=== PATIENT | male | born 1955 | race Caucasian/White ===

== ENCOUNTER 2018-11-04 20:21 | Emergency (ER) | payer SELFPAY ==
[~2018-11-04] VITALS: Ht 167.6 cm; Wt 80.3 kg
[2018-11-04 21:39] VITALS: BP 145/79
[2018-11-04 23:14] LABS: BASOPHILS % 0.3 % (0.0-2.0); EOSINOPHILS % 1.6 % (0.0-5.0); HEMATOCRIT. 41.8 % (42.0-52.0); HEMOGLOBIN. 14.2 g/dL (14.0-18.0); LYMPHOCYTES % 29.4 % (20.0-50.0); MEAN CORPUSCULAR HEMOGLOBIN 31.1 pg (28.0-32.0); MEAN CORPUSCULAR VOLUME 91.3 fL (80.0-94.0); MEAN PLATELET VOLUME 7.9 fl (7.4-10.4); MONOCYTES % 9.2 % (2.0-8.0); NEUTROPHILS % 59.5 % (40.0-76.0); PLATELET 212 x1000/uL (130-400); RED BLOOD CELL COUNT 4.58 mill/uL (4.7-6.1); RED CELL DISTRIBUTION WIDTH 13.1 % (11.6-14.6)
[2018-11-04 23:17] LABS: CHLORIDE 109 mEq/L (98-107)
== END 2018-11-05 00:22 | disposition left against medical advice (07) ==
LOC: ER 20:21
DX: M79.604 Pain in right leg (principal); F17.200 Nicotine dependence, unspecified, uncomplicated; F14.10 Cocaine abuse, uncomplicated
CPT/HCPCS: 36415; 80048; 99283

== ENCOUNTER 2019-04-14 18:17 | Inpatient (IN) | payer SELFPAY ==
[~2019-04-14] VITALS: Ht 172.7 cm; Wt 84.1 kg
[2019-04-14 04:00] VITALS: BP 154/84
[2019-04-14] MEDS ORDERED: ONDANSETRON HCL 4MG/2ML INJ IV STA (20:04)
[2019-04-14] MEDS ORDERED: SODIUM CHLORIDE 0.9% 1,000 ML IV ONE (20:04)
[2019-04-14] MEDS ORDERED: MORPHINE SULFATE 4 MG/ML CPJ (NOT FOR IM USE) IV STA (20:04)
[2019-04-14] MEDS ORDERED: VANCOMYCIN 1 G PREMIX 200 ML IV ONE (20:15)
[2019-04-14] MEDS ORDERED: PIPERACILLIN/TAZ 3.375G PREMIX 50 ML IV ONE (20:15)
[2019-04-14] MEDS ORDERED: SODIUM CHLORIDE 0.9% 1000ML BAG (SEPSIS BOLUS) IV ONE (20:15)
[2019-04-14] MEDS ORDERED: DIPHENHYDRAMINE 50MG/ML VIAL IV ONE (20:15)
[2019-04-14 20:46] LABS: CLARITY URINE CLEAR (CLEAR); COLOR URINE YELLOW (YELLOW); KETONES URINE NEGATIVE (NEGATIVE); LEUKOCYTE ESTERASE URINE NEGATIVE (NEGATIVE); NITRITE URINE NEGATIVE (NEGATIVE); OCCULT BLOOD URINE NEGATIVE (NEGATIVE); PH URINE 5.5 (4.5-8.0); PROTEIN URINE NEGATIVE (NEGATIVE); SPECIFIC GRAVITY URINE 1.033 (1.005-1.030)
[2019-04-14 21:55] LABS: BASOPHILS % 0.7 % (0.0-2.0); EOSINOPHILS % 6.8 % (0.0-5.0); HEMATOCRIT. 39.8 % (42.0-52.0); HEMOGLOBIN. 13.7 g/dL (14.0-18.0); LYMPHOCYTES % 29.8 % (20.0-50.0); MEAN CORPUSCULAR HEMOGLOBIN 31.5 pg (28.0-32.0); MEAN CORPUSCULAR VOLUME 91.6 fL (80.0-94.0); MEAN PLATELET VOLUME 8.4 fl (7.4-10.4); MONOCYTES % 8.4 % (2.0-8.0); NEUTROPHILS % 54.3 % (40.0-76.0); PLATELET 165 x1000/uL (130-400); RED BLOOD CELL COUNT 4.35 mill/uL (4.7-6.1); RED CELL DISTRIBUTION WIDTH 12.8 % (11.6-14.6)
[2019-04-14 22:01] LABS: PROTHROMBIN TIME 10.3 sec (9.6-11.0)
[2019-04-14 22:15] LABS: CHLORIDE 109 mEq/L (98-107)
[2019-04-15] MEDS ORDERED: ACETAMINOPHEN 650MG SUPP PR PRN (03:15)
[2019-04-15] MEDS ORDERED: ONDANSETRON HCL 4MG/2ML INJ IV PRN (03:15)
[2019-04-15] MEDS ORDERED: PIPERACILLIN/TAZ 3.375G PREMIX 50 ML IV SCH (03:15)
[2019-04-15] MEDS ORDERED: VANCOMYCIN 1 G PREMIX 200 ML IV SCH (03:15)
[2019-04-15] MEDS ORDERED: MAGNESIUM/ALUMINUM HYDROXIDE/SIMETHICONE 30ML UDC PO PRN (03:15)
[2019-04-15] MEDS ORDERED: ACETAMINOPHEN 325MG TABLET PO PRN (03:15)
[2019-04-15] MEDS ORDERED: CLONIDINE 0.1MG TABLET PO PRN (03:15)
[2019-04-15] MEDS ORDERED: PIPERACILLIN/TAZOBACTAM 3.375 G in DEXT 5% WATER 100 ML IV SCH (06:00)
[2019-04-15] MEDS ORDERED: VANCOMYCIN 750 MG PREMIX 150 ML IV SCH ×2 (08:00→10:30)
[2019-04-15] MEDS: ENOXAPARIN 40MG/0.4ML SYR SUBCUT SCH (08:47)
[2019-04-15] MEDS: PIPERACILLIN/TAZOBACTAM 3.375 G in DEXT 5% WATER 100 ML IV SCH ×2 (12:02→17:08)
[2019-04-15 20:00] VITALS: BP 108/70
[2019-04-15] MEDS: VANCOMYCIN 1500MG in DEXTROSE 5% WATER 250ML IV SCH (22:00)
[2019-04-15] MEDS: DIPHENHYDRAMINE 50MG/ML VIAL IV PRN (22:09)
[2019-04-16] VITALS: BP 110/70
[2019-04-16] MEDS: PIPERACILLIN/TAZOBACTAM 3.375 G in DEXT 5% WATER 100 ML IV SCH ×4 (00:26→18:32)
[2019-04-16 04:00] VITALS: BP 123/68
[2019-04-16] MEDS: SODIUM CHLORIDE 0.9% INJ 3ML FLUSH IVF SCH ×2 (05:36→14:00)
[2019-04-16 06:31] LABS: BASOPHILS % 0.5 % (0.0-2.0); CHLORIDE 111 mEq/L (98-107); EOSINOPHILS % 6.1 % (0.0-5.0); HEMATOCRIT. 42.8 % (42.0-52.0); HEMOGLOBIN. 14.9 g/dL (14.0-18.0); LYMPHOCYTES % 24.6 % (20.0-50.0); MEAN CORPUSCULAR HEMOGLOBIN 31.6 pg (28.0-32.0); MEAN CORPUSCULAR VOLUME 90.8 fL (80.0-94.0); MEAN PLATELET VOLUME 8.5 fl (7.4-10.4); MONOCYTES % 7.2 % (2.0-8.0); NEUTROPHILS % 61.6 % (40.0-76.0); PLATELET 181 x1000/uL (130-400); RED BLOOD CELL COUNT 4.71 mill/uL (4.7-6.1)
[2019-04-16 08:00] VITALS: BP 129/79
[2019-04-16] MEDS: VANCOMYCIN 1500MG in DEXTROSE 5% WATER 250ML IV SCH (08:35)
[2019-04-16] MEDS: ENOXAPARIN 40MG/0.4ML SYR SUBCUT SCH (08:35)
[2019-04-16] MEDS: DIPHENHYDRAMINE 50MG/ML VIAL IV PRN (11:50)
[2019-04-16 12:00] VITALS: BP 118/64
[2019-04-16 16:00] VITALS: BP 117/74
[2019-04-16] MEDS ORDERED: VANCOMYCIN 1250MG in DEXTROSE 5% WATER 250ML IV SCH (16:00)
[2019-04-16 20:00] VITALS: BP 120/66
== END 2019-04-16 21:38 | disposition home or self-care (01) | DRG 383 ==
LOC: ER 18:17 → EDBEDREQ 23:57 → 6EST 04-15 00:44 → EDBEDREQ 04-15 00:47 → EDBEDREQDT 04-15 00:47 → EDBEDREQTM 04-15 00:47 → ENRESERV 04-15 01:48
PROVIDERS: ADMIT Internal Medicine; ATTEND Internal Medicine
DX: L03.115 Cellulitis of right lower limb (principal); L97.919 Non-pressure chronic ulcer of unspecified part of right lower leg with unspecified severity; I73.9 Peripheral vascular disease, unspecified; L29.9 Pruritus, unspecified
CPT/HCPCS: 36415; 71045; 73590; 80048; 80202; 81003; 83605; 84145; 84484; 87070; 87077; 87186; 93005; 93970; 99285; J1200; J1650; J2270; J2405; J2543; J3370; J7030; J7060

== ENCOUNTER 2019-04-23 08:23 | Emergency (ER) | payer MEDICAID ==
[~2019-04-23] VITALS: Ht 167.6 cm; Wt 81.0 kg
[2019-04-23 08:32] VITALS: BP 154/67
== END 2019-04-23 08:53 | disposition home or self-care (01) ==
LOC: ER 08:23
DX: L97.818 Non-pressure chronic ulcer of other part of right lower leg with other specified severity (principal); L29.9 Pruritus, unspecified; L30.9 Dermatitis, unspecified; F17.210 Nicotine dependence, cigarettes, uncomplicated
CPT/HCPCS: 99283

== ENCOUNTER 2021-11-09 21:50 | Emergency (ER) | payer MEDICAID ==
[~2021-11-09] VITALS: Ht 175.3 cm; Wt 79.7 kg
[2021-11-09 22:26] VITALS: BP 138/72
[2021-11-09] MEDS ORDERED: ACETAMINOPHEN 325MG TABLET PO ONE (23:00)
[2021-11-10] MEDS ORDERED: ACET-2708 MT (00:54)
== END 2021-11-10 01:00 | disposition home or self-care (01) ==
LOC: ER 21:50
DX: M79.89 Other specified soft tissue disorders (principal)
CPT/HCPCS: 93971; 99284

== ENCOUNTER 2021-11-23 16:19 | Emergency (ER) | payer MEDICAID ==
[~2021-11-23] VITALS: Ht 175.3 cm; Wt 69.0 kg
[~2021-11-23 16:19] MED LIST: ACET-2708 MT
[2021-11-23 20:01] LABS: BASOPHILS % 0.7 % (0.0-2.0); EOSINOPHILS % 2.3 % (0.0-5.0); HEMATOCRIT. 42.6 % (42.0-52.0); HEMOGLOBIN. 14.6 g/dL (14.0-18.0); LYMPHOCYTES % 30.3 % (20.0-50.0); MEAN CORPUSCULAR HEMOGLOBIN 31.2 pg (28.0-32.0); MEAN CORPUSCULAR VOLUME 90.9 fL (80.0-94.0); MEAN PLATELET VOLUME 8.1 fl (7.4-10.4); MONOCYTES % 6.5 % (2.0-8.0); NEUTROPHILS % 60.2 % (40.0-76.0); PLATELET 178 x1000/uL (130-400); RED BLOOD CELL COUNT 4.68 mill/uL (4.7-6.1); RED CELL DISTRIBUTION WIDTH 12.8 % (11.6-14.6)
[2021-11-23 20:08] LABS: CHLORIDE 110 mEq/L (98-107)
[2021-11-23] MEDS ORDERED: MUPI15CR11 TP (21:14)
[2021-11-23] MEDS ORDERED: DOXY100C5 MT (21:14)
[2021-11-23 21:26] VITALS: BP 135/80
== END 2021-11-23 21:26 | disposition home or self-care (01) ==
LOC: ER 16:19
DX: L03.115 Cellulitis of right lower limb (principal); I83.11 Varicose veins of right lower extremity with inflammation
CPT/HCPCS: 36415; 73590; 73630; 80053; 83605; 85025; 93971; 99285

== ENCOUNTER 2022-08-24 19:21 | Emergency (ER) | payer MEDICAID ==
[~2022-08-24] VITALS: Ht 162.6 cm; Wt 74.6 kg
[~2022-08-24 19:21] MED LIST changes: +DOXY100C5 MT; +MUPI15CR11 TP
[2022-08-24 19:31] VITALS: BP 134/66
== END 2022-08-24 22:11 | disposition left against medical advice (07) ==
LOC: ER 19:21
DX: Z53.21 Procedure and treatment not carried out due to patient leaving prior to being seen by health care provider (principal)

== ENCOUNTER 2024-11-27 13:03 | Emergency (ER) | payer MEDICAID ==
[~2024-11-27] VITALS: Ht 167.6 cm; Wt 45.0 kg
[2024-11-27 13:08] VITALS: O2SAT 99
[2024-11-27 14:01] LABS: BASOPHILS % 0.3 % (0.0-2.0); EOSINOPHILS % 1.2 % (0.0-5.0); HEMATOCRIT. 39.3 % (42.0-52.0); HEMOGLOBIN. 13.1 g/dL (14.0-18.0); MEAN CORPUSCULAR HEMOGLOBIN 30.2 pg (28.0-32.0); MEAN CORPUSCULAR HGB CONC 33.4 g/dL (31.0-37.0); MEAN CORPUSCULAR VOLUME 90.2 fL (80.0-94.0); MEAN PLATELET VOLUME 8.1 fl (7.4-10.4); MONOCYTES % 6.3 % (2.0-8.0); NEUTROPHILS % 71.2 % (40.0-76.0); PLATELET 176 x1000/uL (130-400); RED BLOOD CELL COUNT 4.35 mill/uL (4.7-6.1); RED CELL DISTRIBUTION WIDTH 14.8 % (11.6-14.6)
[2024-11-27 14:13] LABS: CHLORIDE 109 mEq/L (98-107); POTASSIUM 3.9 mEq/L (3.5-5.1); SODIUM 140 mEq/L (136-145)
[2024-11-27 14:14] LABS: CARBON DIOXIDE 26 mEq/L (21-32)
[2024-11-27 14:19] LABS: CREATININE 0.7 mg/dL (0.6-1.3); GLUCOSE 105 mg/dL (70-105); UREA NITROGEN BLOOD 15 mg/dL (9-23)
[2024-11-27 14:44] LABS: TROPONIN I HIGH SENSITIVITY < 4 ng/L (3.0-53)
[2024-11-27 15:39] VITALS: BP 150/78; PULSE 66; RESP 14; TEMP 37; O2SAT 99
== END 2024-11-27 15:41 | disposition home or self-care (01) ==
LOC: ER 13:03
DX: R42 Dizziness and giddiness (principal)
CPT/HCPCS: 36415; 71045; 80048; 84484; 85025; 93005; 99285

== ENCOUNTER 2024-12-06 18:51 | Emergency (ER) | payer MEDICAID ==
[~2024-12-06] VITALS: Ht 170.2 cm; Wt 60.0 kg
[2024-12-06 18:54] VITALS: O2SAT 98
[2024-12-06 19:02] VITALS: BP 122/66; PULSE 80; RESP 18; TEMP 36.5; O2SAT 98
[2024-12-06 19:53] LABS: BASOPHILS % 0.2 % (0.0-2.0); EOSINOPHILS % 3.6 % (0.0-5.0); HEMATOCRIT. 38.3 % (42.0-52.0); HEMOGLOBIN. 12.8 g/dL (14.0-18.0); LYMPHOCYTES % 28.9 % (20.0-50.0); MEAN CORPUSCULAR HEMOGLOBIN 30.3 pg (28.0-32.0); MEAN CORPUSCULAR HGB CONC 33.5 g/dL (31.0-37.0); MEAN CORPUSCULAR VOLUME 90.6 fL (80.0-94.0); MEAN PLATELET VOLUME 8.1 fl (7.4-10.4); MONOCYTES % 10.5 % (2.0-8.0); NEUTROPHILS % 56.8 % (40.0-76.0); PLATELET 192 x1000/uL (130-400); RED BLOOD CELL COUNT 4.23 mill/uL (4.7-6.1); RED CELL DISTRIBUTION WIDTH 14.7 % (11.6-14.6); WHITE BLOOD COUNT 6.4 x1000/uL (4.5-11.0)
[2024-12-06 20:01] LABS: CHLORIDE 107 mEq/L (98-107); POTASSIUM 4.2 mEq/L (3.5-5.1); SODIUM 141 mEq/L (136-145)
[2024-12-06 20:02] LABS: CALCIUM 8.8 mg/dL (8.7-10.4); CARBON DIOXIDE 24 mEq/L (21-32)
[2024-12-06 20:07] LABS: CREATININE 0.7 mg/dL (0.6-1.3); GLUCOSE 96 mg/dL (70-105); UREA NITROGEN BLOOD 22 mg/dL (9-23)
[2024-12-06 20:40] LABS: TROPONIN I HIGH SENSITIVITY < 4 ng/L (3.0-53)
== END 2024-12-06 22:51 | disposition left against medical advice (07) ==
LOC: ER 18:51
DX: R07.9 Chest pain, unspecified (principal); Z53.21 Procedure and treatment not carried out due to patient leaving prior to being seen by health care provider
CPT/HCPCS: 36415; 71045; 80048; 84484; 85025; 93005